=== PATIENT | female | born 1960 | race Hispanic/Latino ===

== ENCOUNTER 2018-08-22 07:15 | Day surgery (SDC) | payer BC ==
[2018-08-22 08:26] VITALS: RESP 16
[2018-08-22] MEDS ORDERED: Propofol 10 mg/ml Inj (20 ML) ONE ×2 (09:09→09:46)
[2018-08-22] MEDS ORDERED: Sodium Chloride 0.9% 1,000 ML IV SCH (10:00)
[2018-08-22 10:51] VITALS: BP 132/65; PULSE 60; TEMP 97.6; O2SAT 96
== END 2018-08-22 11:20 | disposition home or self-care (01) ==
LOC: ENDO 07:15
PROVIDERS: ATTEND Internal Medicine Gastroenterology
DX: Z12.11 Encounter for screening for malignant neoplasm of colon (principal); R14.0 Abdominal distension (gaseous); K64.0 First degree hemorrhoids; Q43.8 Other specified congenital malformations of intestine; Z80.0 Family history of malignant neoplasm of digestive organs; I10 Essential (primary) hypertension; Z79.82 Long term (current) use of aspirin; E66.9 Obesity, unspecified; Z68.42 Body mass index [BMI] 45.0-49.9, adult
CPT/HCPCS: 45378; J2001; J2704; J7030; J7040